=== PATIENT | male | born 1960 | race Caucasian/White ===

== ENCOUNTER 2022-06-22 09:05 | Outpatient (CLI) | payer BC | END 2022-06-22 09:06 | disposition home or self-care (01) | LOC: SCSRAD 09:05 | PROVIDERS: ATTEND Family Medicine | DX: M50.30 Other cervical disc degeneration, unspecified cervical region (principal) | CPT/HCPCS: 72050; 72052 ==

== ENCOUNTER 2022-08-09 07:34 | Outpatient (CLI) | payer BC | END 2022-08-09 07:35 | disposition home or self-care (01) | LOC: SCSMRI 07:34 | PROVIDERS: ATTEND Family Medicine | DX: M47.26 Other spondylosis with radiculopathy, lumbar region (principal); E27.8 Other specified disorders of adrenal gland; R60.9 Edema, unspecified | CPT/HCPCS: 72148 ==

== ENCOUNTER 2022-12-28 09:25 | Outpatient (CLI) | payer BC ==
[~2022-12-28 09:25] MED LIST: Iopamidol-370 76% 500 ML 1 ML ONE
== END 2022-12-28 09:26 | disposition home or self-care (01) ==
LOC: BICCT 09:25
PROVIDERS: ATTEND Nurse Practitioner Acute Care
DX: R59.0 Localized enlarged lymph nodes (principal); E27.8 Other specified disorders of adrenal gland; R16.1 Splenomegaly, not elsewhere classified; J35.1 Hypertrophy of tonsils; J39.2 Other diseases of pharynx
CPT/HCPCS: 70491; 71260; 74177; Q9967

== ENCOUNTER 2023-01-10 14:16 | Outpatient (CLI) | payer BC | END 2023-01-10 14:17 | disposition home or self-care (01) | LOC: ULT 14:16 | PROVIDERS: ATTEND Internal Medicine Hematology & Oncology | DX: Z51.11 Encounter for antineoplastic chemotherapy (principal); C83.11 Mantle cell lymphoma, lymph nodes of head, face, and neck; Z79.899 Other long term (current) drug therapy | CPT/HCPCS: 93306 ==

== ENCOUNTER 2023-01-12 09:49 | Day surgery (SDC) | payer BC ==
[2023-01-10 12:25] VITALS: BMI 23.8
[2023-01-12] MEDS ORDERED: Bupivacaine/Epinephrine 0.25% 30 ML VIAL ONE (12:16)
[2023-01-12] MEDS ORDERED: Lidocaine 2% PF 5 ML VIAL ONE (12:16)
[2023-01-12] MEDS ORDERED: fentaNYL PF 100 MCG/2 ML SYRINGE ONE (12:19)
[2023-01-12] MEDS ORDERED: CEFAZOLIN 2 GM VIAL ONE (12:31)
[2023-01-12] MEDS ORDERED: Sodium Chloride 0.9% 100 ML ONE (12:31)
[2023-01-12 12:35] LABS: Hemoglobin 14.1 g/dL (14.0-18.0); Mean Corpuscular HGB CONC 33.2 g/dL (32.0-36.0); Mean Corpuscular Hemoglobin 42.3 pg (27.0-31.0); Mean Platelet Volume 8.6 fL (7.4-10.4); Platelet Count 326 10x3/uL (130-400); RBC Distribution Width 13.5 % (11.5-14.5); Red Blood Cell (RBC) Count 3.34 mill/uL (4.70-6.10); White Blood Cell (WBC) Count 7.5 10x3/uL (4.8-10.8)
[2023-01-12] MEDS ORDERED: Dexamethasone 20 MG/5 ML VIAL ONE (12:36)
[2023-01-12] MEDS ORDERED: Ondansetron PF 4 MG/2 ML Vial ONE (12:36)
[2023-01-12] MEDS ORDERED: Lidocaine 1% PF 5 ML VIAL ONE (12:36)
[2023-01-12] MEDS ORDERED: PROPOFOL 200 MG/20 ML VIAL ONE (12:36)
[2023-01-12] MEDS ORDERED: FENTANYL 50 MCG/ML 1 ML VIAL ONE (13:40)
[2023-01-12 14:01] LABS: #Eosinphils 0.3 thou/uL (0.0-0.7); #Lymphocytes 1.7 thou/uL (1.20-3.40); #Neutrophils 4.5 thou/uL (1.40-6.50); %Basophils 0.3 % (0.0-1.0); %Lymphocytes 22.6 % (21.0-51.0); %Monocytes 12.8 % (0.0-10.0); %Neutrophils 60.3 % (42.0-75.0); Eosinophils 2 % (0-10); Lymphocytes 24 % (21-51); MDiff Complete? YES; Macrocytosis MARKED = >30 cells (100X) (0-5/hpf); Monocytes 15 % (0-10); Neutrophil 59 % (42-75); Platelet Morphology Comment Appears Adequate
== END 2023-01-12 15:10 | disposition home or self-care (01) ==
LOC: SDC 09:49
PROVIDERS: ATTEND Surgery
PROC: 02HV33Z Insertion of Infusion Device into Superior Vena Cava, Percutaneous Approach (ICD-10-PCS; principal; 2023-01-12)
PROC: B518ZZA Fluoroscopy of Superior Vena Cava, Guidance (ICD-10-PCS; principal; 2023-01-12)
PROC: 0JH60WZ Insertion of Totally Implantable Vascular Access Device into Chest Subcutaneous Tissue and Fascia, Open Approach (ICD-10-PCS; principal; 2023-01-12)
DX: C83.11 Mantle cell lymphoma, lymph nodes of head, face, and neck (principal); E78.5 Hyperlipidemia, unspecified; Z86.16 Personal history of COVID-19; Z79.82 Long term (current) use of aspirin; Z79.899 Other long term (current) drug therapy
CPT/HCPCS: 71045; 85025; C1788; J1100; J1642; J2001; J2405; J2704; J3010; J3490

== ENCOUNTER → 2023-01-12 | Outpatient (CLI) | payer BC | LOC: PET 08:00 | PROVIDERS: ATTEND Internal Medicine Hematology & Oncology | DX: C83.11 Mantle cell lymphoma, lymph nodes of head, face, and neck (principal); C85.80 Other specified types of non-Hodgkin lymphoma, unspecified site | CPT/HCPCS: 78815; A9552 ==

== ENCOUNTER 2023-01-13 07:20 | Day surgery (SDC) | payer BC ==
[2023-01-13 07:22] LABS: #Basophils 0.1 thou/uL (0.0-0.2); #Lymphocytes 1.5 thou/uL (1.20-3.40); #Monocytes 1.1 thou/uL (0.11-0.59); #Neutrophils 8.2 thou/uL (1.40-6.50); %Basophils 0.5 % (0.0-1.0); %Eosinophils 0.2 % (0.0-10.0); %Lymphocytes 13.6 % (21.0-51.0); %Monocytes 10.1 % (0.0-10.0); %Neutrophils 75.6 % (42.0-75.0); Hemoglobin 13.5 g/dL (14.0-18.0); Mean Corpuscular Hemoglobin 42.2 pg (27.0-31.0); Mean Platelet Volume 7.7 fL (7.4-10.4); Platelet Count 352 10x3/uL (130-400); RBC Distribution Width 13.2 % (11.5-14.5); Red Blood Cell (RBC) Count 3.21 mill/uL (4.70-6.10); White Blood Cell (WBC) Count 10.9 10x3/uL (4.8-10.8)
[2023-01-13 07:38] LABS: PTT 27.3 sec (22.9-36.1); Prothrombin Time 13.5 sec (12.0-14.7)
[2023-01-13] MEDS ORDERED: Sodium Bicarbonate 2.5 MEQ/5 ML VIAL ONE (07:39)
[2023-01-13] MEDS ORDERED: Lidocaine 1% PF 5 ML VIAL ONE (07:39)
[2023-01-13] MEDS ORDERED: Midazolam HCl 2 mg/2 ml Vial ONE (08:35)
[2023-01-13] MEDS ORDERED: FENTANYL 50 MCG/ML 1 ML VIAL ONE (08:35)
[2023-01-13 09:38] LABS: CSF RBC Count - Manual 0 /cu.mm (None Seen); CSF Source CSF; CSF WBC/NonHematics Count-Man 0 /cu.mm (0-5); Clarity Clear (Clear)
[2023-01-13 09:46] LABS: CSF, Glucose 86 mg/dl (40-70); CSF, Protein 36 mg/dL (15-40)
== END 2023-01-13 10:40 | disposition home or self-care (01) ==
LOC: RAD 07:20
PROVIDERS: ATTEND Internal Medicine Hematology & Oncology
PROC: 009U3ZX Drainage of Spinal Canal, Percutaneous Approach, Diagnostic (ICD-10-PCS; principal; 2023-01-13)
PROC: 07DT3ZX Extraction of Bone Marrow, Percutaneous Approach, Diagnostic (ICD-10-PCS; principal; 2023-01-13)
PROC: 079T3ZX Drainage of Bone Marrow, Percutaneous Approach, Diagnostic (ICD-10-PCS; principal; 2023-01-13)
PROC: B01BZZZ Fluoroscopy of Spinal Cord (ICD-10-PCS; principal; 2023-01-13)
DX: C83.19 Mantle cell lymphoma, extranodal and solid organ sites (principal); Z79.82 Long term (current) use of aspirin; Z86.16 Personal history of COVID-19
CPT/HCPCS: 20225; 62270; 77012; 82945; 84157; 85025; 85097; 85610; 85730; 88112; 88184; 88237; 88305; 88311; 88341; 88342; 89051; J2250; J3010

== ENCOUNTER 2023-01-27 14:00 | Outpatient (CLI) | payer BC | END 2023-01-27 14:01 | disposition home or self-care (01) | LOC: BICRAD 14:00 | PROVIDERS: ATTEND Nurse Practitioner Acute Care | DX: D47.3 Essential (hemorrhagic) thrombocythemia (principal); C83.11 Mantle cell lymphoma, lymph nodes of head, face, and neck | CPT/HCPCS: 71046 ==

== ENCOUNTER 2023-02-06 08:43 | Inpatient (IN) | payer BC ==
[2023-02-06] MEDS ORDERED: diphenhydrAMINE 25 MG in Sodium Chloride 0.9% 50 ML IVPB SCH (09:15)
[2023-02-06] MEDS ORDERED: PALONOSETRON HCL 0.05 MG/ML 5 ML VIAL IVP SCH (09:15)
[2023-02-06] MEDS ORDERED: Acetaminophen 500 MG TAB PO SCH (09:15)
[2023-02-06] MEDS ORDERED: RITUXIMAB ABBS IVPB SCH ×2 (09:30→09:45)
[2023-02-06] MEDS ORDERED: SODIUM CHLORIDE 0.9% IVPB SCH ×2 (09:30→09:45)
[2023-02-06 10:36] LABS: ALT (SGPT) 12 U/L (8-55); AST (SGOT) 14 U/L (5-34); Albumin 3.8 g/dL (3.4-4.8); Alkaline Phosphatase 117 U/L (40-110); Anion Gap 13 mmol/L (10-20); BUN (Urea Nitrogen) 9 mg/dL (8.4-25.7); Bilirubin, Total Less than 0.2 mg/dL (0.2-1.2); Calc. Creatinine Clearance 0 mL/min (70-130); Calcium 9.8 mg/dL (7.8-10.44); Carbon Dioxide 29 mmol/L (23-31); Chloride 100 mmol/L (98-107); Estimated GFR 97; Glucose 91 mg/dL (80-115); Potassium 4.5 mmol/L (3.5-5.1); Protein, Total 6.8 g/dL (5.8-8.1); Sodium 137 mmol/L (136-145); Uric Acid 2.9 mg/dL (3.5-7.2)
[2023-02-06 11:19] LABS: Band 1 % (5-11); Hemoglobin 10.4 g/dL (14.0-18.0); Large Platelets SLIGHT; Lymphocytes 16 % (21-51); MDiff Complete? YES; Macrocytosis MODERATE=16-30 cells (100X) (0-5/hpf); Mean Corpuscular HGB CONC 31.9 g/dL (32.0-36.0); Mean Corpuscular Hemoglobin 39.4 pg (27.0-31.0); Mean Platelet Volume 7.2 fL (7.4-10.4); Monocytes 11 % (0-10); Neutrophil 71 % (42-75); Ovalocytes SLIGHT = 2-5 cells (100X) (0-1/hpf); Platelet Count 639 10x3/uL (130-400); Platelet Morphology Comment Appears Increased; RBC Distribution Width 12.7 % (11.5-14.5); Red Blood Cell (RBC) Count 2.64 mill/uL (4.70-6.10); White Blood Cell (WBC) Count 9.1 10x3/uL (4.8-10.8)
[2023-02-06 13:12] LABS: SARS-CoV-2 NAA Rapid Test Not Detected (NotDetected)
[2023-02-06] MEDS: CYTARABINE IJ SCH (17:44)
[2023-02-06] MEDS: SODIUM CHLORIDE 0.9% IJ SCH (17:44)
[2023-02-06] MEDS: Dexamethasone 0.1% OPTH SOLN L EYE SCH (19:53)
[2023-02-06] MEDS: Dexamethasone 0.1% OPTH SOLN R EYE SCH (19:54)
[2023-02-07] MEDS: CYTARABINE IJ SCH (05:43)
[2023-02-07] MEDS: SODIUM CHLORIDE 0.9% IJ SCH (05:43)
[2023-02-07 06:17] LABS: #Lymphocytes 0.6 thou/uL (1.20-3.40); #Monocytes 0.2 thou/uL (0.11-0.59); %Basophils 0.1 % (0.0-1.0); %Eosinophils 0.3 % (0.0-10.0); %Lymphocytes 5.9 % (21.0-51.0); %Monocytes 2.4 % (0.0-10.0); %Neutrophils 91.4 % (42.0-75.0); Mean Corpuscular HGB CONC 34.2 g/dL (32.0-36.0); Mean Corpuscular Hemoglobin 41.8 pg (27.0-31.0); Mean Platelet Volume 7.3 fL (7.4-10.4); Platelet Count 521 10x3/uL (130-400); RBC Distribution Width 12.9 % (11.5-14.5); Red Blood Cell (RBC) Count 3.11 mill/uL (4.70-6.10); White Blood Cell (WBC) Count 9.9 10x3/uL (4.8-10.8)
[2023-02-07 06:45] LABS: ALT (SGPT) 10 U/L (8-55); AST (SGOT) 13 U/L (5-34); Albumin 3.5 g/dL (3.4-4.8); Alkaline Phosphatase 104 U/L (40-110); Anion Gap 13 mmol/L (10-20); BUN (Urea Nitrogen) 13 mg/dL (8.4-25.7); Bilirubin, Total 0.2 mg/dL (0.2-1.2); Calc. Creatinine Clearance 110 mL/min (70-130); Calcium 9.1 mg/dL (7.8-10.44); Carbon Dioxide 25 mmol/L (23-31); Chloride 104 mmol/L (98-107); Cholesterol 183 mg/dl (< 200 Desired); Estimated GFR 102; Globulin 2.7 g/dL (2.4-3.5); Glucose 142 mg/dL (80-115); HDL Cholesterol 46 mg/dL (>60 Neg Risk); LDL Cholesterol, Calculated 118 mg/dL; Magnesium 2.1 mg/dL (1.6-2.6); Protein, Total 6.2 g/dL (5.8-8.1); Sodium 138 mmol/L (136-145); Triglycerides 94 mg/dL (Less than 150)
[2023-02-07] MEDS: Dexamethasone 0.1% OPTH SOLN R EYE SCH ×3 (09:42→20:18)
[2023-02-07] MEDS: Dexamethasone 0.1% OPTH SOLN L EYE SCH ×3 (09:42→20:18)
[2023-02-07] MEDS: Allopurinol 300 MG TAB PO SCH (09:43)
[2023-02-07] MEDS: SODIUM CHLORIDE 0.9% IVPB SCH (17:41)
[2023-02-07] MEDS: CYTARABINE IVPB SCH (17:41)
[2023-02-08 05:29] LABS: #Lymphocytes 0.2 thou/uL (1.20-3.40); #Monocytes 0.1 thou/uL (0.11-0.59); #Neutrophils 4.9 thou/uL (1.40-6.50); %Eosinophils 0.3 % (0.0-10.0); %Lymphocytes 4.1 % (21.0-51.0); %Monocytes 2.6 % (0.0-10.0); %Neutrophils 93.1 % (42.0-75.0); Hemoglobin 9.3 g/dL (14.0-18.0); Mean Corpuscular HGB CONC 34.8 g/dL (32.0-36.0); Mean Platelet Volume 6.9 fL (7.4-10.4); Platelet Count 544 10x3/uL (130-400); White Blood Cell (WBC) Count 5.3 10x3/uL (4.8-10.8)
[2023-02-08 05:42] LABS: ALT (SGPT) 7 U/L (8-55); AST (SGOT) 11 U/L (5-34); Albumin 3.1 g/dL (3.4-4.8); Alkaline Phosphatase 82 U/L (40-110); Anion Gap 11 mmol/L (10-20); BUN (Urea Nitrogen) 17 mg/dL (8.4-25.7); Bilirubin, Total 0.2 mg/dL (0.2-1.2); Calc. Creatinine Clearance 108 mL/min (70-130); Calcium 8.6 mg/dL (7.8-10.44); Carbon Dioxide 27 mmol/L (23-31); Chloride 105 mmol/L (98-107); Estimated GFR 102; Globulin 2.4 g/dL (2.4-3.5); Glucose 92 mg/dL (80-115); Potassium 4.1 mmol/L (3.5-5.1); Protein, Total 5.5 g/dL (5.8-8.1); Sodium 139 mmol/L (136-145)
[2023-02-08] MEDS: CYTARABINE IVPB SCH (05:47)
[2023-02-08] MEDS: SODIUM CHLORIDE 0.9% IVPB SCH (05:47)
[2023-02-08] MEDS: Allopurinol 300 MG TAB PO SCH (08:33)
[2023-02-08] MEDS: Dexamethasone 0.1% OPTH SOLN L EYE SCH (08:37)
[2023-02-08] MEDS: Dexamethasone 0.1% OPTH SOLN R EYE SCH (08:37)
[2023-02-08 08:59] VITALS: BP 92/51; TEMP 98.2
[2023-02-09] MEDS ORDERED: PEGFILGRASTIM-JMDB 6 MG/0.6 ML SYRINGE SQ SCH (09:00)
== END 2023-02-08 13:05 | disposition home or self-care (01) | DRG 847 ==
LOC: MSONC 08:43
PROVIDERS: ADMIT Internal Medicine Hematology & Oncology; ATTEND Internal Medicine
PROC: XW033B3 Introduction of Cytarabine and Daunorubicin Liposome Antineoplastic into Peripheral Vein, Percutaneous Approach, New Technology Group 3 (ICD-10-PCS; principal; 2023-02-06)
PROC: 3E0330M Introduction of Antineoplastic, Monoclonal Antibody, into Peripheral Vein, Percutaneous Approach (ICD-10-PCS; 2023-02-06)
DX: Z51.11 Encounter for antineoplastic chemotherapy (principal); C83.10 Mantle cell lymphoma, unspecified site; Z15.89 Genetic susceptibility to other disease; D69.6 Thrombocytopenia, unspecified; D64.9 Anemia, unspecified; D70.9 Neutropenia, unspecified; R50.81 Fever presenting with conditions classified elsewhere; Z20.822 Contact with and (suspected) exposure to COVID-19; D64.81 Anemia due to antineoplastic chemotherapy; T45.1X5A Adverse effect of antineoplastic and immunosuppressive drugs, initial encounter; Z86.16 Personal history of COVID-19; Z79.899 Other long term (current) drug therapy; Z83.3 Family history of diabetes mellitus; Z80.3 Family history of malignant neoplasm of breast
CPT/HCPCS: 36415; 80053; 80061; 83036; 83615; 83735; 84443; 84550; 85025; 87081; 87633; 93005; 93010; J1100; J1200; J1453; J1642; J1650; J2469; J3490; J7030; J7050; J9100; Q5115

== ENCOUNTER 2023-02-09 10:05 | Day surgery (SDC) | payer BC ==
[2023-02-09] MEDS ORDERED: PEGFILGRASTIM-JMDB 6 MG/0.6 ML SYRINGE ONE (10:07)
[2023-02-09 10:51] VITALS: BP 99/59; TEMP 98.7
== END 2023-02-09 10:51 | disposition home or self-care (01) ==
LOC: ONC/OP 10:05
PROVIDERS: ATTEND Internal Medicine Hematology & Oncology
DX: Z76.89 Persons encountering health services in other specified circumstances (principal); C83.10 Mantle cell lymphoma, unspecified site
CPT/HCPCS: 96372; Q5108

== ENCOUNTER 2023-03-30 13:37 | Day surgery (SDC) | payer BC ==
[2023-03-30] MEDS ORDERED: diphenhydrAMINE 25 MG CAP PO SCH (14:30)
[2023-03-30] MEDS ORDERED: Acetaminophen 500 MG TAB PO SCH (14:30)
[2023-03-30] MEDS ORDERED: Acetaminophen 500 MG TAB ONE (14:59)
[2023-03-30 16:10] VITALS: BP 100/57; TEMP 98.5
== END 2023-03-30 16:18 | disposition home or self-care (01) ==
LOC: ONC/OP 13:37
PROVIDERS: ATTEND Internal Medicine Hematology & Oncology
DX: D64.9 Anemia, unspecified (principal); D69.6 Thrombocytopenia, unspecified
CPT/HCPCS: 36430; 86850; 86900; 86901; J1642; P9035

== ENCOUNTER 2023-03-31 08:41 | Day surgery (SDC) | payer BC ==
[2023-03-31] MEDS ORDERED: Acetaminophen 500 MG TAB PO SCH (09:15)
[2023-03-31] MEDS ORDERED: diphenhydrAMINE 25 MG CAP PO SCH (09:15)
[2023-03-31] MEDS ORDERED: Acetaminophen 500 MG TAB ONE (09:57)
[2023-03-31 16:13] VITALS: BP 101/63; TEMP 98.9
== END 2023-03-31 16:10 | disposition home or self-care (01) ==
LOC: ONC/OP 08:41
PROVIDERS: ATTEND Internal Medicine Hematology & Oncology
DX: D64.9 Anemia, unspecified (principal)
CPT/HCPCS: 36430; 86850; 86900; 86901; J1642; P9016; P9035

== ENCOUNTER 2023-05-10 09:07 | Day surgery (SDC) | payer BC ==
[2023-05-10] MEDS ORDERED: diphenhydrAMINE 25 MG CAP PO SCH (09:15)
[2023-05-10] MEDS ORDERED: Acetaminophen 500 MG TAB PO SCH (09:15)
[2023-05-10] MEDS ORDERED: Acetaminophen 500 MG TAB ONE (09:27)
[2023-05-10 12:00] VITALS: BP 106/66; TEMP 97.7
== END 2023-05-10 12:14 | disposition home or self-care (01) ==
LOC: ONC/OP 09:07
PROVIDERS: ATTEND Internal Medicine Hematology & Oncology
DX: D64.9 Anemia, unspecified (principal); D69.59 Other secondary thrombocytopenia
CPT/HCPCS: 36430; 86850; 86900; 86901; P9016

== ENCOUNTER 2023-05-18 08:45 | Outpatient (CLI) | payer BC | END 2023-05-18 08:46 | disposition home or self-care (01) | LOC: PET 08:45 | PROVIDERS: ATTEND Internal Medicine Hematology & Oncology | DX: C83.11 Mantle cell lymphoma, lymph nodes of head, face, and neck (principal) | CPT/HCPCS: 78815; A9552 ==

== ENCOUNTER 2024-03-12 14:26 | Outpatient (CLI) | payer BC | END 2024-03-12 14:27 | disposition home or self-care (01) | LOC: CT 14:26 | PROVIDERS: ATTEND Internal Medicine | DX: C83.10 Mantle cell lymphoma, unspecified site (principal); E27.8 Other specified disorders of adrenal gland | CPT/HCPCS: 70491; 71260; 74177 ==

== ENCOUNTER 2024-08-01 12:58 | Outpatient (CLI) | payer BC | END 2024-08-01 12:59 | disposition home or self-care (01) | LOC: BICMAMMO 12:58 | PROVIDERS: ATTEND Internal Medicine Hematology & Oncology | DX: M85.89 Other specified disorders of bone density and structure, multiple sites (principal) | CPT/HCPCS: 77080 ==

== ENCOUNTER 2024-09-19 07:54 | Outpatient (CLI) | payer BC | END 2024-09-19 07:55 | disposition home or self-care (01) | LOC: BICCT 07:54 | PROVIDERS: ATTEND Internal Medicine Hematology & Oncology | DX: C83.11 Mantle cell lymphoma, lymph nodes of head, face, and neck (principal) | CPT/HCPCS: 36415; 70491; 71260; 74177; 82565 ==

== ENCOUNTER 2025-08-05 13:43 | Outpatient (CLI) | payer BC ==
[2025-08-05 14:54] LABS: #Basophils 0.04 10x3/uL (0.0-0.2); #Eosinophils 0.05 10x3/uL (0.0-0.7); #Monocytes 0.56 10x3/uL (0.11-0.59); #Neutrophils 1.95 10x3/uL (1.40-6.50); %Basophils 1.3 % (0.0-1.0); %Eosinophils 1.6 % (0.0-10.0); %Lymphocytes 18.1 % (21.0-51.0); %Monocytes 17.5 % (0.0-10.0); %Neutrophils 60.9 % (42.0-75.0); Hematocrit 40.0 % (42.0-52.0); Hemoglobin 13.2 g/dL (14.0-18.0); Mean Corpuscular Hemoglobin 38.4 pg (27.0-31.0); Mean Corpuscular Volume 116.3 fL (78.0-98.0); Platelet Count 211 10x3/uL (130-400); Red Blood Cell (RBC) Count 3.44 mill/uL (4.70-6.10); White Blood Cell (WBC) Count 3.20 10x3/uL (4.8-10.8)
[2025-08-05 15:12] LABS: INR-International Normal Ratio 1.0; Prothrombin Time 13.4 sec (12.0-14.7)
[2025-08-05 15:13] LABS: PTT 26.2 sec (22.9-36.1)
[2025-08-05 15:34] LABS: Bacteria/HPF None Seen HPF (None Seen); Glucose, Urine (Dipstick) Normal (Negative); Leukocyte Negative Leu/uL (Negative); Protein, Urine (Dipstick) Negative (Neg-Trace); RBC/HPF 0-3 HPF (0-3); Specific Gravity, Urine 1.005 (1.002-1.036); WBC/HPF 0-3 HPF (0-3)
[2025-08-05 15:39] LABS: Anisocytosis SLIGHT = 6-15 cells HPF (0-5); Macrocytosis SLIGHT = 6-15 cells HPF (0-5); Platelet Adequacy Comment Platelets Normal; Polychromasia SLIGHT = 2-3 cells HPF (0-2)
[2025-08-05 16:47] LABS: HIV (1/2) Antibody/Antigen NONREACTIVE (NonReactive); HIV 1/2 INDEX 0.05 S/CO (<1.00); Hep A IgM AB NONREACTIVE (NonReactive); Hep A IgM S/CO 0.18 S/CO (0-0.79); Hep B Core IgM Index 0.07 S/CO (0-0.79); Hep B Surf Ag NONREACTIVE S/CO (NonReactive); Hep C IgG Ab NONREACTIVE S/CO (NonReactive); Hep C Index 0.04 S/CO (0-0.79)
[2025-08-05 17:13] LABS: Anion Gap 11 mmol/L (10-20); BUN (Urea Nitrogen) 11 mg/dL (8.4-25.7); Carbon Dioxide 29 mmol/L (23-31); Chloride 104 mmol/L (98-107); Potassium 3.4 mmol/L (3.5-5.1); Sodium 141 mmol/L (136-145)
[2025-08-05 17:14] LABS: Calc. Creatinine Clearance 0 mL/min (70-130); Calcium 9.3 mg/dL (7.6-10.4); Glucose 118 mg/dL (80-115)
[2025-08-05 23:54] LABS: Chlam.trachomatis by PCR,Urine Not Detected (NotDetected)
[2025-08-06 22:29] LABS: Syphilis Antibody Index 0.05 S/CO (<1.00 Non-Reactive)
== END 2025-08-05 13:44 | disposition home or self-care (01) ==
LOC: LABBT 13:43
PROVIDERS: ATTEND Urology
DX: Z01.818 Encounter for other preprocedural examination (principal); N48.9 Disorder of penis, unspecified
CPT/HCPCS: 80048; 80074; 81001; 85025; 85610; 85730; 86780; 87086; 87389; 87491; 93005; 93010